=== PATIENT | male | born 1975 | race Caucasian/White ===

== ENCOUNTER 2021-01-24 16:59 | Inpatient (IN) | payer SELFPAY ==
[~2021-01-24] VITALS: Ht 172.7 cm; Wt 67.6 kg
[2021-01-24] MEDS ORDERED: diphenhydrAMINE HCL 50 MG/ML VIAL ONE (17:15)
[2021-01-24] MEDS ORDERED: LORAZEPAM INJ 2 MG/ML VIAL ONE (17:15)
[2021-01-24] MEDS ORDERED: HALOPERIDOL LACTATE INJ 5 MG/ML VIAL ONE (17:15)
--- NOTE | 2021-01-24 17:23 | NUR ---
The patient comes in the emergency department via EMS; he was found in the school [place], possibly high on drugs-not acting himself. The patient has no medical history per family report, just recently moved in with family about 6 months ago.
--- NOTE | 2021-01-24 17:24 | NUR ---
Tachycardia noted, placed on the monitor-medications given per ER physician order
--- NOTE | 2021-01-24 17:24 | NUR ---
Seen and evaluated by the ED physician with orders for basic blood works and Ativan, Haldol, and Benadryl.
[2021-01-24] MEDS ORDERED: diphenhydrAMINE HCL 50 MG/ML VIAL IM ONE ×2 (17:30)
[2021-01-24] MEDS ORDERED: LORAZEPAM INJ 2 MG/ML VIAL IM ONE ×2 (17:30)
[2021-01-24] MEDS ORDERED: HALOPERIDOL LACTATE INJ 5 MG/ML VIAL IM ONE ×2 (17:30)
[2021-01-24 17:46] LABS: BASOPHILS % (AUTO) 0.1 % (0.0-2.0); HEMATOCRIT 46 % (39-51); HEMOGLOBIN 15.2 g/dL (13.5-17.5); LYMPHOCYTES # (AUTO) 0.5 /CMM (0.8-4.8); LYMPHOCYTES % (AUTO) 2.6 % (20.0-44.0); MEAN CORPUSCULAR HGB CONC 33 g/dl (31.0-36.0); MEAN CORPUSCULAR VOLUME 91 fL (80-96); MONOCYTES # (AUTO) 1.4 /CMM (0.1-1.30); MONOCYTES % (AUTO) 6.7 % (2.0-12.0); NEUTROPHILS # (AUTO) 18.6 /CMM (1.8-8.9); NEUTROPHILS % (AUTO) 90.6 % (43.0-81.0); PLATELET COUNT (AUTO) 314 /CMM (150-450); RED BLOOD CELL COUNT(AUTO) 5.02 MIL/uL (4.5-6.0); WHITE BLOOD COUNT (AUTO) 20.5 K/uL (4.3-11.0)
[2021-01-24] MEDS ORDERED: IV NS 0.9% 1,000 ML IV ONE (18:00)
[2021-01-24 18:03] LABS: CALCIUM, SERUM 9.7 mg/dL (8.5-10.1); CARBON DIOXIDE 21 mmol/L (21-32); CHLORIDE 99 mmol/L (98-107); CREATININE 1.5 mg/dL (0.6-1.3); GLUCOSE 245 mg/dL (74-106); SODIUM SERUM 137 mmol/L (136-145); UREA NITROGEN, BLOOD 13 mg/dL (7-18)
[2021-01-24 18:05] LABS: POTASSIUM 2.8 mmol/L (3.5-5.1)
--- NOTE | 2021-01-24 18:05 | NUR ---
LAB CALLED JANNA 2.8
[2021-01-24 18:10] LABS: ACETAMINOPHEN < 0 ug/ml (10-30); ALANINE AMINOTRANSFERASE 50 U/L (12-78); ALBUMIN 4.6 g/dL (3.4-5.0); ALCOHOL, BLOOD < 3 mg/dL (0-0); ALKALINE PHOSPHATASE 82 U/L (46-116); ASPARTATE AMINOTRANSFERASE 54 U/L (15-37); BILIRUBIN,DIRECT 0.3 mg/dL (0.0-0.2); BILIRUBIN,TOTAL 1.7 mg/dL (0.2-1.0); TOTAL PROTEIN, SERUM 8.3 g/dL (6.4-8.2)
[2021-01-24 18:40] LABS: BILIRUBIN,URINE NEGATIVE (NEGATIVE); COLOR,URINE YELLOW (YELLOW); LEUKOCYTE ESTERASE ,URINE NEGATIVE (NEGATIVE); NITRITE, URINE NEGATIVE (NEGATIVE); PROTEIN,URINE TRACE mg/dl (NEGATIVE); UGLUCOSE NEGATIVE (NEGATIVE); UROBILINOGEN,URINE 0.2 EU/dL (0.2)
[2021-01-24 18:54] LABS: BACTERIA,URINE Few /HPF (None Seen); RBC,URINE 0-2 /HPF (0-2); SQUAMOUS EPITHELIAL CELL,UR Moderate /HPF (None Seen)
[2021-01-24] MEDS ORDERED: POTASSIUM CL. PREMIX PERIPHER. 200 ML ONE (18:55)
[2021-01-24] MEDS ORDERED: VANCOMYCIN 1 GM in IV D5W 250 ML IV ONE (19:00)
[2021-01-24] MEDS ORDERED: CEFTRIAXONE 2 G in IV D5W 100 ML IV SCH (19:00)
[2021-01-24] MEDS: POTASSIUM CL. PREMIX PERIPHER. 50 ML IV SCH ×4 (19:02→23:00)
[2021-01-24 19:28] LABS: MAGNESIUM 2.4 mg/dL (1.8-2.4)
--- NOTE | 2021-01-24 19:28 | NUR ---
THE PATIENT IS BACK FROM CT
--- NOTE | 2021-01-24 19:45 | NUR ---
COVID SWAB DONE AND SENT TO THE LAB
[2021-01-24] MEDS ORDERED: IV NS 0.9% 1,000 ML BAG IV ONE (20:30)
--- NOTE | 2021-01-24 20:44 | NUR ---
COVID NEGATIVE PER LAB
--- NOTE | 2021-01-24 22:26 | NUR ---
potassium bag #4 given to MARIO rodriguez
--- NOTE | 2021-01-24 22:27 | NUR ---
patient in stable condition and per acls protocol is tranfsered to room 109
[2021-01-24] MEDS ORDERED: MAGNESIUM HYDROXIDE 30 ML UDC PO PRN (22:30)
[2021-01-24] MEDS ORDERED: ZOLPIDEM TARTRATE 5 MG TABLET PO PRN (22:30)
[2021-01-24] MEDS ORDERED: HYDROCODONE/APAP 5/325MG TABLET PO PRN (22:30)
[2021-01-24] MEDS ORDERED: ACETAMINOPHEN 325 MG TABLET PO PRN (22:30)
[2021-01-24] MEDS ORDERED: Z GUARD REMEDY 2 OZ OINT TP PRN (22:30)
[2021-01-24] MEDS ORDERED: ONDANSETRON HCL/PF 4 MG/2 ML VIAL IVP PRN (22:30)
--- NOTE | 2021-01-24 22:40 | NUR ---
ADMIT NOTE RECEIVED PATIENT FROM ER, TRANSFERRED TO ROOM 109. PATIENT IS VERY LETHARGIC, UNABLE TO FOLLOW COMMANDS. ON ROOM AIR, O SAT 95%. NO SOB NOTED. RESPIRATIONS EVEN AND UNLABORED. TELE MONITOR ON, HR 70'S. SKIN ASSESSMENT DONE, NOTED WITH RIGHT SHOULDER AND UPPER ARM ABRASION/REDNESS. RIGHT AC #18 AND LEFT FA #20 PATENT AND INTACT. FLUSHED WITH NS. SAFETY MEASURES IMPLEMENTED. BED LOCKED AND IN LOWEST POSITION CALL LIGHT WITHIN REACH.
[2021-01-25] VITALS: BP 99/60
[2021-01-25] MEDS: IV NS 0.9% 1,000 ML IV PRN ×2 (00:29→21:28)
[2021-01-25 04:00] VITALS: BP 100/66
[2021-01-25 06:30] LABS: BASOPHILS % (AUTO) 0.4 % (0.0-2.0); EOSINOPHILS % (AUTO) 0.6 % (0.0-6.0); HEMATOCRIT 39 % (39-51); HEMOGLOBIN 13.2 g/dL (13.5-17.5); LYMPHOCYTES # (AUTO) 1.3 /CMM (0.8-4.8); LYMPHOCYTES % (AUTO) 17.1 % (20.0-44.0); MEAN CORPUSCULAR HGB CONC 34 g/dl (31.0-36.0); MEAN CORPUSCULAR VOLUME 92 fL (80-96); MONOCYTES # (AUTO) 0.9 /CMM (0.1-1.30); MONOCYTES % (AUTO) 11.2 % (2.0-12.0); NEUTROPHILS # (AUTO) 5.4 /CMM (1.8-8.9); NEUTROPHILS % (AUTO) 70.7 % (43.0-81.0); PLATELET COUNT (AUTO) 210 /CMM (150-450); RED BLOOD CELL COUNT(AUTO) 4.25 MIL/uL (4.5-6.0); WHITE BLOOD COUNT (AUTO) 7.6 K/uL (4.3-11.0)
--- NOTE | 2021-01-25 07:01 | NUR ---
RN NOTE PATIENT SLIGHTLY LETHARGIC, RESPONSIVE TO STIMULI. ON ROOM AIR, O SAT 98%. NO SOB NOTED. RESPIRATIONS EVEN AND UNLABORED. TELE MONITOR ON, HR 80'S. RIGHT AC #18 AND LEFT FA #20 PATENT AND INTACT. RUNNING NS @ SAFETY MEASURES IMPLEMENTED. BED LOCKED AND IN LOWEST POSITION CALL LIGHT WITHIN REACH. WILL ENDORSE TO AM SHIFT.
[2021-01-25 07:09] LABS: ALBUMIN 3.4 g/dL (3.4-5.0); BILIRUBIN,DIRECT 0.3 mg/dL (0.0-0.2); BILIRUBIN,TOTAL 2.2 mg/dL (0.2-1.0); CALCIUM, SERUM 8.3 mg/dL (8.5-10.1); CREATININE 0.8 mg/dL (0.6-1.3); MAGNESIUM 2.3 mg/dL (1.8-2.4); PHOSPHORUS 4.2 mg/dL (2.5-4.9); POTASSIUM 3.9 mmol/L (3.5-5.1); TOTAL PROTEIN, SERUM 6.4 g/dL (6.4-8.2)
--- NOTE | 2021-01-25 07:29 | NUR ---
DEV TECHNICAL MGR OPENING NOTES RECEIVED PT AWAKE IN BED IN NO ACUTE SIGNS OF DISTRESS. A/O X2 TO NAME AND PERSON. REMAINS SLIGHTLY LETHARGIC BUT VERBALLY RESPONSIVE, DENIES PAIN OR ANY DISCOMFORTS AT THIS TIME. EXTERNAL TAG MARKER SHOWS NSR WITH HR ON THE HIGH 60'S, NO C/O CARDIAC DISTRESS VOICED AT THIS TIME. IV SITE ON RIGHT AC G#18 AND LFA G#20 BOTH INTACT AND PATENT, IVF OF NS @ 75ML/HR INFUSING WELL. SAFETY MEASURE IN PLACE: BED IN LOWEST LOCKED POSITION WITH SR UP X2. CALL LIGHT WITHIN REACH. WILL CONTINUE TO MONITOR PT ACCORDINGLY. .
[2021-01-25 08:00] VITALS: BP 105/65
[2021-01-25] MEDS: ENOXAPARIN SODIUM 40 MG/0.4 ML DISP.SYRIN SQ SCH (08:37)
--- NOTE | 2021-01-25 08:42 | NUR ---
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
[2021-01-25] MEDS: VANCOMYCIN 1 GM in IV D5W 250ml IV SCH ×2 (09:19→16:46)
--- NOTE | 2021-01-25 12:00 | NUR ---
Social Service Consult: support services rep consult requested for substance use. Patient is a 45-year-old, male. SW met with the patient at his hospital bed in the med-surg unit. Patients sister, Celeste was at the bedside. Patient is alert and oriented x4. Patient is calm and resting. Per patients chart, patient was brought in by EMS on 01/24/21 for altered mental status. Patient stated that he currently lives with his sister, Celeste, at [address] [address], [place] [address]. SW assessed patients history of substance use and patient stated that he has been snorting a substance for the last month but was unable to name the substance. Per patients toxicology report, patient is positive for amphetamine. SW assessed if patient currently has a source of income and patient stated he does not have income currently, but his sister helps him. Patient has adequate social support from his sister. 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 Patient stated that he is independent with his ADLs. Patient denies any history of mental illness and denies any current suicidal or homicidal ideation. SW discussed discharge plans with the patient. Patient stated that he plans to return to his prior living arrangement at home with his sister. Celeste stated that she will be able to take the patient home at the time of discharge. SW offered the patient substance abuse resources for drug use. Patient accepted the resources and stated that he will follow up with the resources, with the help of his sister. PLAN: Patient stated he will be returning to his prior living arrangement. No further SS interventions at this time, however SW will remain available as needed. Substance use resources provided included: [facility] Substance Abuse Self-Helpline ([facility]) ; [facility] [address] [place] [address] ; [facility] [address] [facility] [address] ; [facility] [address] [facility] [address] ; [facility] [address] [facility] [address] ; [facility] [address] [facility] [id number] ; [facility] [place]; [facility]; [facility]; Alcoholics Anonymous -SFV
[2021-01-25 16:00] VITALS: BP 96/54
--- NOTE | 2021-01-25 16:20 | NUR ---
RN NOTES COVID-19 PCR SWAB DONE AND BROUGHT SPECIMEN TO LAB. WILL F/U RESULTS
--- NOTE | 2021-01-25 18:33 | NUR ---
MS RN CLOSING NOTES PT AWAKE AND RESTING IN BED WITH SISTER RADHA AT BEDSIDE. A/O X3-4 NOW. FRENCH SPEAKING. CALMED, QUIET AND COOPERATIVE DURING THE DAY. IV SITE ON RIGHT AC G#18 AND LFA G#20 BOTH INTACT AND PATENT, IVF OF NS @ 75ML/HR INFUSING WELL, NO S/S OF INFILTRATIONS NOTED TO BOTH PIV'S. ALL NEEDS AND CARE PROVIDED WELL. SAFETY MEASURE IN PLACE: BED IN LOWEST LOCKED POSITION WITH SR UP X2. CALL LIGHT WITHIN REACH. WILL ENDORSE DONNA TO DIRECTOR VETERINARY NURSE
[2021-01-25] MEDS ORDERED: CEFTRIAXONE 1 G in IV D5W 50 ML IV SCH (19:00)
--- NOTE | 2021-01-25 19:30 | NUR ---
RN NOTE RECEIVED PATIENT IN BED, SISTER AT BEDSIDE, AO X 3-4, CZECH SPEAKING, KARL BHATIA WAS ABLE TO HELP WITH TRANSLATION. PATIENT IN NO S/SX OF ACUTE DISTRESS AT THIS TIME. NO SOB NOTED, BREATHING IS EVEN AND UNLABORED. SATURATION AT 97% ON ROOM AIR, HR IS 66. NOTED IV SITE AT RAC 18G, AND LFA 20G, ALL HUBS PATENT AND FLUSHING WELL, NO S/S OF INFECTION OR INFILTRATION, WITH IV FLUID OF NS INFUSING AT 75 ML/HR. SAFETY MEASURES IMPLEMENTED. PATIENT BED ALARM IS ON. HEAD OF BED ELEVATED. BED IS LOCKED, IN LOWEST POSITION AND SIDE RAILS UP. CALL LIGHT WITHIN REACH OF THE PATIENT. WILL CONTINUE TO MONITOR AND REASSESS FOR ANY CHANGES.
[2021-01-25 20:00] VITALS: BP 100/49
[2021-01-26] MEDS: VANCOMYCIN 1 GM in IV D5W 250ml IV SCH ×2 (01:12→08:19)
[2021-01-26 04:00] VITALS: BP 98/60
[2021-01-26 06:16] LABS: BASOPHILS % (AUTO) 0.5 % (0.0-2.0); HEMATOCRIT 37 % (39-51); HEMOGLOBIN 12.5 g/dL (13.5-17.5); LYMPHOCYTES # (AUTO) 1.2 /CMM (0.8-4.8); LYMPHOCYTES % (AUTO) 22.1 % (20.0-44.0); MEAN CORPUSCULAR HGB CONC 34 g/dl (31.0-36.0); MEAN CORPUSCULAR VOLUME 93 fL (80-96); MONOCYTES # (AUTO) 0.5 /CMM (0.1-1.30); MONOCYTES % (AUTO) 9.7 % (2.0-12.0); NEUTROPHILS # (AUTO) 3.7 /CMM (1.8-8.9); NEUTROPHILS % (AUTO) 65.7 % (43.0-81.0); PLATELET COUNT (AUTO) 177 /CMM (150-450); WHITE BLOOD COUNT (AUTO) 5.6 K/uL (4.3-11.0)
[2021-01-26 06:42] LABS: CALCIUM, SERUM 8.1 mg/dL (8.5-10.1); CREATININE 0.7 mg/dL (0.6-1.3); MAGNESIUM 2.1 mg/dL (1.8-2.4); PHOSPHORUS 4.2 mg/dL (2.5-4.9); POTASSIUM 3.7 mmol/L (3.5-5.1)
--- NOTE | 2021-01-26 07:17 | NUR ---
RN NOTE PATIENT REMAINS IN ROOM, NO SIGN IF ACUTE DISTRESS NOTED. SATURATION AT 97% ON ROOM AIR. NS INFUSING AT 75 ML/HR VIA LFA 20G. APPROPRIATE ISOLATION PRECAUTIONS MAINTAINED. SAFETY MEASURES IMPLEMENTED. ENDORSED TO ROCIO MARTIN FOR CONTINUATION OF CARE.
--- NOTE | 2021-01-26 07:30 | NUR ---
RN OPENING NOTE PATIENT PRESENT IN BED, A//OX3, CHADIAN SPEAKER, ON ROOM AIR, RESPIRATIONS EVEN AND UNLABORED, SPO2 98%, IV LINE PATENT AND INTACT, BED LOCKED, IN LOWEST PORTION, CALL LIGHT IN REACH, HOB ELEVATED ;WILL CONT TO MONITOR
[2021-01-26 08:00] VITALS: BP 96/60
[2021-01-26] MEDS: ENOXAPARIN SODIUM 40 MG/0.4 ML DISP.SYRIN SQ SCH (08:21)
--- NOTE | 2021-01-26 15:02 | NUR ---
Belongings from [employer] picked up and returned to patient #[id number], enveloped sealed
--- NOTE | 2021-01-26 15:16 | NUR ---
snow removal supervisor time 1530, sister will pick him up, discharge paperwork provided, IV lines removed
--- NOTE | 2021-01-26 15:39 | NUR ---
Discharged home via car, sister picked up
== END 2021-01-26 15:30 | disposition home or self-care (01) | DRG 917 ==
LOC: ER 17:10 → EDBD 17:10 → TELE1 21:26 → MEDSG1 01-25 09:30
PROVIDERS: ADMIT Nurse Practitioner Acute Care; ATTEND Nurse Practitioner Acute Care
DX: T43.621A Poisoning by amphetamines, accidental (unintentional), initial encounter (principal); G92 Toxic encephalopathy; M62.82 Rhabdomyolysis; E87.2 Acidosis; E87.6 Hypokalemia; Z20.822 Contact with and (suspected) exposure to COVID-19; K59.00 Constipation, unspecified; R73.9 Hyperglycemia, unspecified; Y92.009 Unspecified place in unspecified non-institutional (private) residence as the place of occurrence of the external cause; E86.0 Dehydration; K76.89 Other specified diseases of liver; F43.9 Reaction to severe stress, unspecified; R74.01 Elevation of levels of liver transaminase levels; F15.159 Other stimulant abuse with stimulant-induced psychotic disorder, unspecified
CPT/HCPCS: 36415; 70450-TC; 71045-TC; 73090-TC; 76705-TC; 80048-TC; 80061-TC; 80076-TC; 81001; 82140-TC; 82550-TC; 82553; 83605-TC; 83735-TC; 84100-TC; 84484-TC; 85025-TC; 85730-TC; 87040-TC; 87081-TC; 87086-TC; 93307-TC; A4349; C9803; G0378; G0480; J0696; J1200; J1630; J1650; J2060; J3370; J3480; J7030; J7060; U0003

== ENCOUNTER 2022-05-08 04:18 | Emergency (ER) | payer MEDICAID, OTHER ==
[~2022-05-08] VITALS: Ht 167.6 cm; Wt 77.6 kg
--- NOTE | 2022-05-08 04:28 | NUR ---
[id number] from home, woke upp screaming and yelling, denies drugs/alcohol per report. On room air, breathing evenly and unlabored. Kept comfortable, will continue to monitor accordingly. Sitter at bedside for constant monitoring.
[2022-05-08] MEDS ORDERED: OLANZAPINE 10 MG VIAL IM ONE ×2 (04:41→05:00)
--- NOTE | 2022-05-08 04:49 | NUR ---
URINE COLLECTED AND SENT TO LAB
[2022-05-08 05:15] LABS: BASOPHILS % (AUTO) 0.4 % (0.0-2.0); EOSINOPHILS % (AUTO) 0.2 % (0.0-6.0); HEMATOCRIT 38 % (39-51); LYMPHOCYTES # (AUTO) 0.8 K/uL (0.8-4.8); LYMPHOCYTES % (AUTO) 10.3 % (20.0-44.0); MEAN CORPUSCULAR HGB CONC 35 g/dl (31.0-36.0); MEAN CORPUSCULAR VOLUME 87 fL (80-96); MONOCYTES # (AUTO) 0.7 K/uL (0.1-1.30); MONOCYTES % (AUTO) 8.4 % (2.0-12.0); NEUTROPHILS # (AUTO) 6.4 K/uL (1.8-8.9); NEUTROPHILS % (AUTO) 80.7 % (43.0-81.0); PLATELET COUNT (AUTO) 176 K/uL (150-450); RED BLOOD CELL COUNT(AUTO) 4.32 MIL/uL (4.5-6.0); WHITE BLOOD COUNT (AUTO) 7.9 K/uL (4.3-11.0)
[2022-05-08 05:22] LABS: BILIRUBIN,URINE NEGATIVE (NEGATIVE); COLOR,URINE YELLOW (YELLOW); LEUKOCYTE ESTERASE ,URINE NEGATIVE (NEGATIVE); NITRITE, URINE NEGATIVE (NEGATIVE); PROTEIN,URINE NEGATIVE (NEGATIVE); UGLUCOSE NEGATIVE (NEGATIVE); UROBILINOGEN,URINE 0.2 EU/dL (0.2)
[2022-05-08 05:35] LABS: ALANINE AMINOTRANSFERASE 25 U/L (12-78); ALCOHOL, BLOOD < 3 mg/dL (0-0); ALKALINE PHOSPHATASE 58 U/L (46-116); ASPARTATE AMINOTRANSFERASE 22 U/L (15-37); BILIRUBIN,DIRECT 0.3 mg/dL (0.0-0.2); BILIRUBIN,TOTAL 1.5 mg/dL (0.2-1.0); CALCIUM, SERUM 8.6 mg/dL (8.5-10.1); CARBON DIOXIDE 23 mmol/L (21-32); CHLORIDE 106 mmol/L (98-107); CREATININE 0.9 mg/dL (0.6-1.3); GLUCOSE 149 mg/dL (74-106); SODIUM SERUM 140 mmol/L (136-145); TOTAL PROTEIN, SERUM 7.3 g/dL (6.4-8.2); UREA NITROGEN, BLOOD 13 mg/dL (7-18)
[2022-05-08 05:46] LABS: POTASSIUM 2.8 mmol/L (3.5-5.1)
[2022-05-08 05:47] LABS: ACETAMINOPHEN < 2 ug/ml (10-30)
--- NOTE | 2022-05-08 06:00 | NUR ---
PATIENT RESTING COMFORTABLY NO COMPLAINTS AT THIS TIME.
[2022-05-08] MEDS ORDERED: POTASSIUM CL. PREMIX PERIPHER. 50 ML ONE ×4 (06:59→10:37)
[2022-05-08] MEDS: POTASSIUM CL. PREMIX PERIPHER. 50 ML IV SCH ×4 (07:07→10:40)
--- NOTE | 2022-05-08 07:30 | NUR ---
PATIENT RESTING IN BED, RESPONDS TO VERBAL AND PHYSICAL STIMULI. STABLE ON RA WITH NO S/SX OF DISTRESS NOTED. 50 ML BAG OF KCL CURRENTLY INFUSING AT 10MEQ PER/HR, TOLERATING WELL WITH NO SIGNS OF INFILTRATION NOTED. PATIENT DENIES PAIN AT THIS TIME. WILL CONTINUE TO MONITOR
[2022-05-08 14:28] LABS: CALCIUM, SERUM 8.4 mg/dL (8.5-10.1); CREATININE 0.8 mg/dL (0.6-1.3); POTASSIUM 3.8 mmol/L (3.5-5.1)
[2022-05-08] MEDS ORDERED: OLANZAPINE 5 MG TABLET PO ONE (14:30)
--- NOTE | 2022-05-08 14:35 | NUR ---
SS consult: SS consult requested for bizarre behavior and drug abuse. Per REYNA, the pt. was BIBRA after family reports that the pt. was screaming in the middle of the night with bizarre behavior. The pt. is a 47 year old male. Upon SS consult, the pt. is alert & oriented x 4 and makes good eye contactand only speak Hebrew. Pt. states he does not know why he was brought to the hospital. The pt. appears well-groomed and remains cooperative with elevated mood. The pt. has tangential thought process with loud speech and appears slightly restless. SW explored pt.'s drug and alcohol use. the pt. states that he uses meth for "medicational purposes" but could not explain. SW offered pt. refferal to a drug rehab and pt. declined. Pt. stated he does not feel this is a problem for him. The pt. has paranoid delusions and states that he believes his family is doing withcraft on him and stating he has a spaceship that he can use to get home. Pt. denies SI/HI and denies hallucinations. SW got verbal consent from pt to speak to his sister, Celeste Corral [phone]. SW called and spoke to Celeste Corral [phone] to gather collateral information. Celeste states that the pt. resides with her and her family at home[[address] [facility] [address] [facility] [address] Celeste states the family called the paramedics after the pt. began screaming at night and when they went to check on him he felt very stiff and he was awake but not talking. Celeste report that the pt. has been usign Methamphetamine and acting bizarre since the of their mother in 2019. Per Celeste the pt. stopped workig due to the pandemic and never resumed work after. 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 Celeste reports that the pt. does not have a hx. of mental illness just drug use. ROSE provided psychoeducation to family about the effects of drug dependence and treatment and explained that we would respect the patient's self-determination. Celeste expressed understanding. ROSE called Director and manager assurance anti air warfare operations officer, Anita Rojas [phone] and consulted. Per REYNA, the pt. was administered Zyprexa at 4:41 am. Per Anita, she is recommending the pt. be medicated again for psyhcotic symptoms and reasses if pt. is safe to return home. ROSE discussed Pete reeves MD who is agreeable. ROSE ptovided pt. with resources for drug rehabs, sober living facilities, psychiatric treatment and mental health centers: ADDICTION RESOURCES For Drugs and Alcohol [facility] sober living Referrals For Rehabilitation once sober Address:[address] [place] [address] [facility] [address] [place] [address] Detox/residential [facility] Substance Abuse Helpline ([facility]) Outpatient, residential treatment, recovery support for youth/adults [facility] www.SafeMeds SolutionsfamilycounsDinnr [facility] Teen programs for drug/alcohol education and support Elizabeth Zaidi [place]. Program for adults, sliding scale provides support and education [employer] [employer] www.IntroMaps.org [place]; Detox/residential treatment programs; transition to sober living [facility] www.cri-help.org [place]; Outpatient and residential treatment programs; transition to sober living [facility] TEL: [phone] [facility] Abuse Recovery Terrell Segundo; Outpatient education and supportive programs for teens and adults [place] [facility] www.oasiswomensrecovery.org [place]; Residential treatment and work program for females only [place] www.phoenixhouse.org [place]: Outpatient/residential treatment program for teens and young adults [facility] [address] www.[facility]our[facility] counseling center.org [place] Detox, inpatient, outpatient for adults and youth [facility] [place] [place]; Outpatient programs and referrals to community residential programs. Alcoholics Anonymous -sfv information and meeting and scheduleswww.aa-intergroup.org Vd-Aipt-Ccyzzmh https://al-anon.org/ [place] support groups for family of alcoholics. Marijuana Anonymous www.FamilyLeafistrDefenCall6.org -sfv listing of meetings Narcotics Anonymous www.na.org SOBER LIVING RESOURCES [facility] www.soberhousing.net A non-profit agency that provides resources to recovery and sober living homes throughout [place], [facility] Men's Sober Living Homes: A Work in Progress, Martina [facility]ates, Edna [facility] Women's Sober Living Homes: [facility] [address] My [place] Beginning[place], [place] [facility] Coed Sober Living Homes: [facility]--Outpatient [facility] [address] [facility] [place] [address] (Specializes in in-depth psychotherapy for emotional distress: anxiety, depression, interpersonal conflicts, life transitions, childhood abuse) [facility] [address] [place] [address] (Assist with solving problem marital difficulties, separation & divorce, aging parents, & grief, chronic & terminal illness) [facility] [address] [place] [address] (Deal with loss & grief, anxiety, marital difficulties) Homebound/Mental Health Services [address] [facility] [address] [place], [place] [address] (Provide in-home mental services to people who are incapable of leaving their homes) Organization for Needs of the Elderly Senior Service/Resource Center [address] [place] [address] [facility] [address] [place], [place] [id number] Mental Health Services Xiomara Campoverde [address] [place] [address] Services: Outpatient therapy for children, teens, young adults, adults, older adults, and families; Psychiatric services, medication support Psychiatric Outpatient Services [facility] Partial Hospitalization and Intensive Outpatient Program (Managed Care and [place] Only)[address] [facility]. [facility] [phone] [facility] Partial Hospitalization and Outpatient Djcxofi[address] [facility] [address] [place], [place] [phone] [facility] [place] [id number] [facility] [address] [place], [place] [phone] [facility] Partial Hospitalization and Outpatient Otzimzy[address] [place], [phone] Crisis and Hotline Telephone Numbers 24-Hour service unless stated [place] Crisis Hotlines: [facility] Mental Health/Crisis Line........908.342.3300 Suicide Prevention Center (24 Hours).......467.969.3309 Suicide Prevention Crisis Center.......[phone] (24 Hours) Assaults Against Women Hotline.........218.715.9414 (24 Hours -- [facility]) Women and Children Crisis Long Term...........[phone] (24 Hours) Child Abuse Hotline............590.218.7581 [facility] (24 Hours)..........[phone] Alcoholics Anonymous (24 Hours)..........[phone] Cocaine Anonymous (24 Hours)............[phone] Narcotics Anonymous (24 Hours)..........[phone] [address] [facility] [address] [place] [address]
--- NOTE | 2022-05-08 14:42 | NUR ---
COVID SWAB DONE AND SENT TO LAB
[2022-05-08] MEDS ORDERED: OLANZAPINE 5 MG TABLET ONE (14:50)
--- NOTE | 2022-05-08 16:36 | NUR ---
IV ACCESS ESTABLISHED RFA G#18, FLUSHING WELL.
--- NOTE | 2022-05-08 21:22 | NUR ---
Patient discharged to home in stable condition. Written and verbal after care instructions given. Patient verbalizes understanding of instruction.
[2022-05-08 21:23] VITALS: BP 132/80
== END 2022-05-08 21:23 | disposition home or self-care (01) ==
LOC: ER 04:21
DX: F23 Brief psychotic disorder (principal); E87.6 Hypokalemia; F15.10 Other stimulant abuse, uncomplicated; Z20.822 Contact with and (suspected) exposure to COVID-19
CPT/HCPCS: 99291; 96372; 96365; 96366; 93005; 85025; 80048 ×2; 80076; 83735; 81003; 36415; 87426; 80143; 80320; 80307; J7030; J7050; J3490; J3480 ×4; C9803; G0480